=== PATIENT | female | born 2000 | race African-American/Black ===

== ENCOUNTER 2024-07-21 21:30 | Emergency (ER) | payer MEDICAID ==
[2024-07-21 22:07] LABS: Bilirubin Neg (Negative); Blood, Urine 250 (Negative); Clarity Slightly Cloudy (Clear); Glucose, Urine (Dipstick) Normal (Negative); Ketone, Urine Negative (Negative); Leukocyte Negative (Negative); Nitrite Negative (Negative); Protein, Urine (Dipstick) 15 mg/dl (Neg-Trace); Specific Gravity, Urine 1.015 (1.005-1.030); Urobilinogen Normal mg/dL (Less than 2)
[2024-07-21 22:09] LABS: Pregnancy Test - Urine (BHCG) Negative (Negative); Pregu Control Background? CLEAR/WHITE (CLR/WHITE); Pregu Control Bar Appear? YES (CONTROL BAR); Specific Gravity 1.015 (1.002-1.036)
[2024-07-21 22:15] LABS: RBC/HPF Greater than 50 HPF (0-3)
[2024-07-21 22:16] LABS: Bacteria/HPF 2+ HPF (None Seen); CAUTI Indications for Culture Pelvic or flank pain; Squamous Epithelial 0-3 HPF (0-3); WBC/HPF 0-3 HPF (0-3)
[2024-07-21 22:18] LABS: Mucous/LPF 1+ LPF (<2+)
[2024-07-21 22:19] LABS: Urine Culture Reflex No No
== END 2024-07-21 23:41 | disposition home or self-care (01) ==
LOC: CSHERS 21:30
DX: N23 Unspecified renal colic (principal); K59.00 Constipation, unspecified
CPT/HCPCS: 74176; 81001; 81025